=== PATIENT | male | born 1980 ===

== ENCOUNTER 2017-03-30 16:11 | Emergency (ER) | payer OTHER ==
[2017-03-30 16:25] VITALS: RESP 18
[2017-03-30] MEDS ORDERED: Sodium Chloride 0.9% 1,000 ML IV STA (16:34)
--- NOTE | 2017-03-30 16:42 | ED PDOC ---
HPI: Hypertension/Hypotension Time Seen by Provider: 03/30/17 16:24 Chief Complaint (Nursing): Chest Pain Chief Complaint (Provider): Palpitations History Per: Patient History/Exam Limitations: no limitations Onset/Duration Of Symptoms: Days (2) Current Symptoms Are (Timing): Still Present Associated Symptoms: Headache. denies: Chest Pain Additional Complaint(s): Pt BIBA with c/o palpitations X 1 day, admits to drinking alcohol since last night. Also c/o SHAFFER that started last night. Denies CP, SOB, nausea, vomiting, abd pain. Drinks alcohol once per week, denies drug use. Past Medical History Reviewed: Nursing Documentation, Vital Signs Vital Signs: Last Vital Signs Temp Pulse 74 03/30/17 16:25 Resp 18 03/30/17 16:25 BP 137/91 H 03/30/17 16:25 Pulse Ox 98 03/30/17 16:25 - Medical History PMH: No Chronic Diseases - Family History Family History: States: Unknown Family Hx - Living Arrangements Living Arrangements: Alone - Social History Current smoker - smoking cessation education provided: Yes Alcohol: Occasional Drugs: Denies - Allergies Allergies/Adverse Reactions: Allergies Allergy/AdvReac Type Severity Reaction Status Date / Time No Known Allergies Allergy Verified 03/30/17 16:15 Review of Systems Constitutional: Negative for: Fever, Chills Cardiovascular: Positive for: Palpitations. Negative for: Chest Pain, Light Headedness Respiratory: Negative for: Cough, Shortness of Breath Gastrointestinal: Negative for: Nausea, Vomiting, Abdominal Pain, Diarrhea Genitourinary Male: Negative for: Dysuria, Hematuria Skin: Negative for: Rash, Lesions Neurological: Positive for: Headache. Negative for: Weakness, Numbness, Incoordination, Change in Speech, Confusion, Seizures, Altered Mental Status, Dizziness Physical Exam - Reviewed Nursing Documentation Reviewed: Yes Vital Signs Reviewed: Yes - Physical Exam Appears: Positive for: Well, No Acute Distress (Alcohol on breath) Head Exam: Positive for: ATRAUMATIC, NORMAL INSPECTION Skin: Positive for: Normal Color, Warm, Dry Eye Exam: Positive for: Normal appearance, EOMI, PERRL Neck: Positive for: Normal, Painless ROM, Supple Cardiovascular/Chest: Positive for: Regular Rate, Rhythm Respiratory: Positive for: Normal Breath Sounds. Negative for: Rales, Rhonchi, Wheezing Gastrointestinal/Abdominal: Positive for: Normal Exam, Bowel Sounds, Soft. Negative for: Tenderness Extremity: Positive for: Normal ROM Neurologic/Psych: Positive for: Alert, road oiler II-XII, Oriented. Negative for: Motor/Sensory Deficits, Aphasia, Facial Droop - Laboratory Results Result Diagrams: 03/30/17 17:07 03/30/17 17:07 - ECG Interpretation Of ECG: NSR @ 76, sinus arrhythmia, IRBBB. O2 Sat by Pulse Oximetry: 98 Medical Decision Making Medical Decision Makin yo intoxicated male with palpitations and headache. - labs - EKG - CXR - IVF Patient Name / ID : RAF CALDERON / [id number] Exam Date : 03/30/2017 16:48:20 ( Approved ) Study Comment : Sex / Age : M / 36Y Creator : Addi Horn MD Dictator : Addi Horn MD Senior [employer] Consultant : Deicer Kit Assembler : Addi Horn MD Approver2 : Report Date : 03/30/2017 17:08:37 My Comment : HISTORY: Palpitations. Portable study 16:49. COMPARISON: No prior. FINDINGS: LUNGS: No active pulmonary disease. PLEURA: No significant pleural effusion identified, no pneumothorax apparent. CARDIOVASCULAR: No radiographic findings to suggest acute or significant cardiovascular disease. OSSEOUS STRUCTURES: No significant abnormalities. VISUALIZED UPPER ABDOMEN: Normal. OTHER FINDINGS: None. IMPRESSION: No active disease. Accession No. : [id number] Patient Name / ID : RAF CALDERON / [id number] Exam Date : 03/30/2017 16:58:10 ( Approved ) Study Comment : Sex / Age : M / 36Y Creator : Kiko Harp MD Dictator : Senior [employer] Consultant : Deicer Kit Assembler : Kiko Harp MD Approver2 : Report Date : 03/30/2017 17:43:39 My Comment : PROCEDURE: CT scan brain 03/30/2017 HISTORY: Headache. COMPARISON: No prior study available for comparison. The the TECHNIQUE: Contiguous helical/ transaxial computed tomography images were obtained through the head/brain without intravenous contrast. Radiation dose: Total exam DLP = 850.4 mGy-cm. This CT exam was performed using one or more of the following dose reduction techniques: Automated exposure control, adjustment of the mA and/or kV according to patient size, and/or use of iterative reconstruction technique. . FINDINGS: HEMORRHAGE: No acute parenchymal, subarachnoid or extra-axial hemorrhage. BRAIN: No obvious parenchymal nor extra-axial mass or collection seen on this noncontrast study. No significant volume loss VENTRICLES: . No obstructive hydrocephalus however note made of some mild asymmetry of the lateral ventricles right-side of which is slightly larger than the left which is felt to be secondary to an anatomic variation CALVARIUM: No acute calvarial fractures PARANASAL SINUSES: Unremarkable as visualized. No significant inflammatory changes. MASTOID AIR CELLS: Unremarkable as visualized. No inflammatory changes. OTHER FINDINGS: None. IMPRESSION: No acute intracranial hemorrhage. Disposition - Clinical Impression Clinical Impression: Alcohol abuse - Disposition Referrals: Alcoholics Anonymous [Outside] [facility] [Outside] Disposition Time: 19:00 Condition: IMPROVED Instructions: Abuse of Alcohol (ED) Forms: [employer] (Yi) Print Language: GEORGIAN Patient Signed Over To: Virgilio Solis Handoff Comments: Pending sobriety.
--- NOTE | 2017-03-30 17:09 | RAD ---
HISTORY: Palpitations. Portable study 16:49. COMPARISON: No prior. FINDINGS: LUNGS: No active pulmonary disease. PLEURA: No significant pleural effusion identified, no pneumothorax apparent. CARDIOVASCULAR: No radiographic findings to suggest acute or significant cardiovascular disease. OSSEOUS STRUCTURES: No significant abnormalities. VISUALIZED UPPER ABDOMEN: Normal. OTHER FINDINGS: None. IMPRESSION: No active disease.
[2017-03-30 17:17] VITALS: PULSE 84
[2017-03-30 17:17] LABS: BASO # 0.1 K/uL (0.0-0.2); BASO % 0.9 % (0.0-2.0); EOS # 0.1 K/uL (0.0-0.7); EOS % 1.3 % (0.0-4.0); HEMOGLOBIN 16.5 g/dL (12.0-18.0); LYMPH # 2.1 K/uL (1.0-4.3); LYMPH % 35.7 % (20.0-40.0); MEAN CELL VOLUME 91.6 fl (80.0-94.0); MEAN CORPUSCULAR HEMOGLOBIN 30.4 pg (27.0-31.0); MEAN CORPUSCULAR HGB CONC 33.2 g/dL (33.0-37.0); MONO # 0.6 K/uL (0.0-0.8); MONO % 9.8 % (0.0-10.0); NEUT # 3.1 K/uL (1.8-7.0); NEUT % 52.3 % (50.0-75.0); NRBC % 1.1 % (0.0-0.0); RBC 5.43 Mil/uL (4.40-5.90); RED CELL DISTRIBUTION WIDTH 14.1 % (11.5-14.5); WHITE BLOOD COUNT 5.9 K/uL (4.8-10.8)
[2017-03-30 17:36] LABS: ALB/GLOB RATIO 1.1 (1.0-2.1); ALBUMIN 4.3 g/dL (3.5-5.0); ALT/SGPT 130 U/L (21-72); AST/SGOT 88 U/L (17-59); BLOOD UREA NITROGEN 9 mg/dl (9-20); CALCIUM 8.4 mg/dL (8.4-10.2); GFR AFRICAN-AMERICAN > 60; GFR NON-AFRICAN AMERICAN > 60
--- NOTE | 2017-03-30 17:45 | CT ---
PROCEDURE: CT scan brain 03/30/2017 HISTORY: Headache. COMPARISON: No prior study available for comparison. The the TECHNIQUE: Contiguous helical/ transaxial computed tomography images were obtained through the head/brain without intravenous contrast. Radiation dose: Total exam DLP = 850.4 mGy-cm. This CT exam was performed using one or more of the following dose reduction techniques: Automated exposure control, adjustment of the mA and/or kV according to patient size, and/or use of iterative reconstruction technique. . FINDINGS: HEMORRHAGE: No acute parenchymal, subarachnoid or extra-axial hemorrhage. BRAIN: No obvious parenchymal nor extra-axial mass or collection seen on this noncontrast study. No significant volume loss VENTRICLES: . No obstructive hydrocephalus however note made of some mild asymmetry of the lateral ventricles right-side of which is slightly larger than the left which is felt to be secondary to an anatomic variation CALVARIUM: No acute calvarial fractures PARANASAL SINUSES: Unremarkable as visualized. No significant inflammatory changes. MASTOID AIR CELLS: Unremarkable as visualized. No inflammatory changes. OTHER FINDINGS: None. IMPRESSION: No acute intracranial hemorrhage.
[2017-03-30 17:47] LABS: PARTIAL THROMBOPLASTIN TIME 38.7 Seconds (25.6-37.1); PROTHROMBIN TIME 11.4 Seconds (9.8-13.1)
[2017-03-30 17:58] VITALS: O2SAT 98
[2017-03-30 19:00] VITALS: BP 117/86
--- NOTE | 2017-03-30 20:12 | ED PDOC ---
- Laboratory Results Result Diagrams: 03/30/17 17:07 03/30/17 17:07 - ECG O2 Sat by Pulse Oximetry: 98 Medical Decision Making Medical Decision Making: Time: 19:00 Patient is signed over to me by Dr. Og pending sobriety. 20:00 Pt. now awake, alert, oriented, walking steadily unassisted to the bathroom. Has no complaints at this time, wishing to leave ER. Will d/c home. Scribe Attestation: Documented by Stephen De Paz acting as a scribe for Virgilio Solis MD. Scribe Attestation: All medical record entries made by the Scribe were at my direction and personally dictated by me. I have reviewed the chart and agree that the record accurately reflects my personal performance of the history, physical exam, medical decision making, and the department course for this patient. I have also personally directed, reviewed, and agree with the discharge instructions and disposition. Disposition - Clinical Impression Clinical Impression: Alcohol abuse - POA Present On Arrival: None - Disposition Referrals: Alcoholics Anonymous [Outside] [facility] [Outside] Disposition: Routine/Home Disposition Time: 20:00 Condition: IMPROVED Instructions: Abuse of Alcohol (ED) Forms: [employer] (Venezuelan) Print Language: URDU
[2017-03-30 20:44] VITALS: TEMP 98.1
--- NOTE | 2017-03-31 12:17 | CARD ---
APPROVED REPORT EKG Measurement Heart [id number] <Conclusion> Normal sinus rhythm with sinus arrhythmia Incomplete right bundle branch block Borderline ECG
== END 2017-03-30 20:30 | disposition home or self-care (01) ==
LOC: H.ER 16:11
DX: R07.89 Other chest pain (principal); F10.10 Alcohol abuse, uncomplicated; F17.200 Nicotine dependence, unspecified, uncomplicated; I10 Essential (primary) hypertension
CPT/HCPCS: 70450; 71045; 80053; 80320; 82948; 84484; 85025; 85610; 85730; 93005; 99285; J7040

== ENCOUNTER 2018-03-21 23:42 | Emergency (ER) | payer SELFPAY ==
--- NOTE | 2018-03-22 01:22 | ED PDOC ---
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 Patient reports pain/decreased hearing in right ear, cough, subjective fevers. Little relief with Nyquil. Denies headache, nausea/vomiting, chest pain, shortness of breath, palpitations, abdominal pain, changes in bowel movements, sick contacts. Past Medical History Reviewed: Historical Data, Nursing Documentation, Vital Signs Vital Signs: Last Vital Signs Temp 99.2 F 03/22/18 00:20 Pulse 91 H 03/22/18 00:20 Resp 16 03/22/18 00:20 BP 149/91 H 03/22/18 00:20 Pulse Ox 97 03/22/18 00:20 - Medical History PMH: No Chronic Diseases - Surgical History Surgical History: No Surg Hx - Family History Family History: States: No Known Family Hx - Living Arrangements Living Arrangements: With Family - Home Medications Home Medications: Ambulatory Orders Medication Instructions Recorded Amoxicillin 875 mg PO BID #14 tablet 03/22/18 Fluticasone Nasal [Flonase] 1 actuation NS BID #1 bottle 03/22/18 Ibuprofen [Motrin Tab] 1 tab PO Q6 PRN #15 tab 03/22/18 Promethazine DM [Phenergan DM 5 ml PO Q6 PRN #1 bottle 03/22/18 Syrup] - Allergies Allergies/Adverse Reactions: Allergies Allergy/AdvReac Type Severity Reaction Status Date / Time No Known Allergies Allergy Verified 03/22/18 00:20 Review of Systems ROS Statement: Except As Marked, All Systems Reviewed And Found Negative Constitutional: Positive for: Fever ENT: Positive for: Ear Pain, Nose Congestion, Throat Pain Respiratory: Positive for: Cough Physical Exam - Reviewed Nursing Documentation Reviewed: Yes Vital Signs Reviewed: Yes - Physical Exam Appears: Positive for: Well, Non-toxic, No Acute Distress Head Exam: Positive for: ATRAUMATIC, NORMAL INSPECTION, NORMOCEPHALIC ENT: Positive for: TM Is/Are (dull/erythematous right TM. Left TM blocked by cerumen. EACs clear bilaterally), Nasal Congestion Neck: Positive for: Normal, Painless ROM Cardiovascular/Chest: Positive for: Regular Rate, Rhythm Respiratory: Positive for: Normal Breath Sounds Gastrointestinal/Abdominal: Positive for: Normal Exam Back: Positive for: Normal Inspection Extremity: Positive for: Normal ROM Neurologic/Psych: Positive for: Alert, Oriented (x3) - ECG O2 Sat by Pulse Oximetry: 97 - Progress ED Course And Treament: -influenza -rapid strep -ibuprofen PO Patient educated on findings, discharged with rx Amoxicillin, Ibuprofen, Flonase, Promethazine DM Advised fluids, rest Follow up PMD within 2-3 days Return precautions given Disposition - Clinical Impression Clinical Impression: URI (upper respiratory infection), Otitis media - Patient ED Disposition Is Patient to be Admitted: No Counseled Patient/Family Regarding: Studies Performed, Diagnosis, Need For Follo wup, Rx Given - Disposition Disposition: Routine/Home Disposition Time: 03:09 Condition: IMPROVED Prescriptions: Amoxicillin 875 mg PO BID #14 tablet Fluticasone Nasal [Flonase] 1 actuation NS BID #1 bottle Ibuprofen [Motrin Tab] 1 tab PO Q6 PRN #15 tab PRN Reason: Pain, Moderate (4-7) Promethazine DM [Phenergan DM Syrup] 5 ml PO Q6 PRN #1 bottle PRN Reason: Cough Instructions: Ear Infections (Otitis Media), Viral Upper Respiratory Infection, Adult (DC) Forms: [employer] (Italian) Print Language: IRISH
[2018-03-22 03:34] VITALS: BP 141/95; PULSE 76; RESP 15; TEMP 98.4; O2SAT 98
== END 2018-03-22 03:35 | disposition home or self-care (01) ==
LOC: H.ER 23:42 → MERGE 23:42 → H.ER 03-22 03:35
DX: J06.9 Acute upper respiratory infection, unspecified (principal); H66.90 Otitis media, unspecified, unspecified ear